=== PATIENT | male | born 1965 | race Caucasian/White ===

== ENCOUNTER 2024-12-27 06:05 | Emergency (ER) | payer OTHER, SELFPAY ==
[2024-12-27 06:08] VITALS: BP 221/102; PULSE 66; RESP 16; TEMP 36.5; O2SAT 97; BMI 35.9
[2024-12-27 06:16] VITALS: BP 221/120; PULSE 63; RESP 18; O2SAT 94
--- NOTE | 2024-12-27 06:36 | RAD_ITS ---
PROCEDURE: CHEST PA AND LATERAL REASON FOR EXAM: Hypertension TECHNIQUE: PA and lateral.. COMPARISON: None. FINDINGS: Lungs are clear of pneumonia and congestion. No pleural effusions, thickening, or pneumothorax. Upper limits of normal heart size. Great vessels unremarkable. No hilar masses. Bones and soft tissues are unremarkable. RAD/Chest PA and Lateral IMPRESSION: No active cardiopulmonary disease. Reading Location: [facility]
--- NOTE | 2024-12-27 06:36 | EKG12_ITS ---
Test Reason : HTN Blood Pressure : */* mmHG Vent. Rate : 55 BPM Atrial Rate : 55 BPM P-R Int : 142 ms QRS Dur : 92 ms QT Int : 444 ms P-R-T Axes : 42 -8 143 degrees QTcB Int : 424 ms Sinus bradycardia Biatrial enlargement Left ventricular hypertrophy with repolarization abnormality ( R in aVL , Boss product ) Abnormal ECG Confirmed by KHLOE BEDOLLA, HARRIET ([id number]), newspaper copy editor MIGUEL ANGEL FRANKLIN ([id number]) on 12/29/2024 6:58:48 AM Referred By: Confirmed By: HARRIET LEDBETTER MD
[2024-12-27 06:50] LABS: Absolute Lymphocyte Count 1.46 X10^3/uL (0.83-4.51); Absolute Neutrophil Count 3.7 X10^3/uL (2.0-7.7); Basophil# 0.05 X10^3/uL; Basophil% 0.8 % (0-1); Eosinophils% 4.9 % (0-5); Hematocrit 47.1 % (40-54); Hemoglobin 15.9 g/dL (13.0-16.5); Lymphocyte # 1.46 X10^3/ul (0.83-4.51); Mean Corp Hgb Conc 33.8 g/dL (32-36); Mean Corpuscular Hgb 29.7 pg (27.0-32.0); Mean Corpuscular Volume 87.9 fL (80-94); Mean Platelet Vol. 12.2 fl (6.2-12.0); Monocyte# 0.55 X10^3/uL; NRBC Flagged by Analyzer 0 % (0-5); Platelet Count 193 K/mm3 (150-450); RBC Distribution Width CV 12.9 % (11.6-14.6); RBC Distribution Width SD 41.3 fl (35.1-43.9); Red Blood Count 5.36 M/mm3 (4.6-6.2); White Blood Count 6.1 K/mm3 (4.4-11.0)
[2024-12-27] MEDS: hydrALAZINE 20 MG/ML Vial IV (06:56)
[2024-12-27] MEDS: cloNIDine HCl 0.1 MG Tablet PO (06:56)
[2024-12-27 07:03] VITALS: BP 194/115
[2024-12-27 07:07] LABS: Anion Gap 7 (5-15); BUN 14 mg/dL (7-18); BUN/Creat Ratio 14.2 RATIO (10-20); Calcium,Total 9.3 mg/dL (8.5-10.1); Chloride 103 mmol/L (98-107); Creatinine, Serum 0.98 mg/dL (0.70-1.30); EST Glomerular Filtration Rate 83 mL/min (>60); Est Glom Filt Rate - Afr Amer 101 mL/min (>60); Estimated Creatinine Clearance 101.89 ml/min; Glucose 120 mg/dL (74-106); Potassium 3.5 mmol/L (3.5-5.1); Sodium Level 140 mmol/L (136-145)
--- NOTE | 2024-12-27 07:12 | EX.ED.DYSGE1 ---
HPI History of Present Illness Chief Complaint: Hypertension Informant: patient and spouse/S.O. Narrative Narrative: Patient 59-year-old male with remote history of hypertension. He states that he was initially on a water pill to control his blood pressure but after moving to this area [place] did not obtain a PCP and once the medication ran out he did not seek out a new PCP to refill it. He states he has been feeling normal without headache change in vision chest pain or shortness of breath. He states that his was recently seen in the hospital for hypertension and this evening they were checking her pressure and he decided to check his and it was grossly elevated and secondary to this comes in for evaluation. He denies any excessive stimulant use or illicit drug use as potential exogenous cause. He states he does not have headache chest pain shortness of breath change in vision but secondary to the elevated reading comes in for evaluation. [facility] Medical History (Updated 12/27/24 @ 07:[address] William Mike, DO) Kidney stone Hypertension Home Medications ?Medication ?Instructions ?Recorded ?Last Taken ?Type hydrochlorothiazide 25 mg tablet 25 mg PO DAILY 30 days #30 tabs 12/27/24 Unknown Rx lansoprazole 15 mg capsule,delayed 15 mg PO DAILY 12/27/24 Unknown History release (Acid Corduroy Cutter Operator (lansoprazole)) lisinopril 20 mg tablet 20 mg PO DAILY 30 days #30 tabs 12/27/24 Unknown Rx vitamin D3 25 mcg (1,000 unit)-vit 2 tab PO DAILY 12/27/24 Unknown History K2 90 mcg disintegrating tablet (D3 Plus K2 Dots) Allergy/AdvReac Type Severity Reaction Status Date / Time apple AdvReac Mild Diarrhea Verified 12/27/24 06:07 Social History Smoking Status: Never smoker [facility] ED Constitutional Constitutional ED: Denies chills or fever(s) Eyes Eyes: Denies blurry vision, change in vision or diplopia ENT ENT ED: Denies sore throat Cardiovascular Cardiovascular: Denies chest pain, palpitations or racing heartbeat Respiratory/Chest Respiratory/Chest: Denies cough or dyspnea Gastrointestinal Gastrointestinal: Denies abdominal pain, diarrhea, nausea or vomiting Genitourinary Genitourinary ED: Denies dysuria Musculoskeletal Musculoskeletal: Denies back pain Integumentary Denies rash Neurologic Neurologic: Denies headache(s), paresthesias or weakness Hematologic/Lymphatic Hematologic/Lymphatic: Denies easy bleeding or easy bruising EXAM Physical Exam Const Vital Signs: 12/27/24 06:08 12/27/24 06:16 12/27/24 07:03 Temperature 97.7 F L Temperature Source Oral Pulse Rate 66 63 Respiratory Rate 16 18 Blood Pressure 221/102 H 221/120 H 194/115 H Blood Pressure Mean 141 153 141 Pulse Ox 97 94 Oxygen Delivery Method Room Air Room Air 12/27/24 07:27 Temperature Temperature Source Pulse Rate Respiratory Rate Blood Pressure 176/92 H Blood Pressure Mean 120 Pulse Ox Oxygen Delivery Method Positive well nourished and well developed General Appearance ED: well developed; Negative for pallor HEENT HEENT Narrative: Normocephalic atraumatic Eyes PERRL and EOMs intact bilaterally General Eye ED: Negative for scleral icterus Neck supple Resp normal respiratory effort and clear to auscultation bilaterally Cardio regular rate and regular rhythm Rate: other Other Details: Regular rate and rhythm without murmurs rubs or gallop Radial and carotid pulses are equal and symmetric GI normal to inspection, nondistended, normoactive bowel sounds, non-tender, non-distended and no masses GI Narrative: No pulsatile mass Auscultation: normoactive bowel sounds Palpation: soft Extremity normal to inspection Neuro oriented x3, CN's II-XII intact bilaterally and no sensory deficits noted Neuro Narrative: GCS of 15 Cranial nerves II through XII are grossly intact without focal neurologic deficit No pronator drift no dysmetria no truncal ataxia NIH stroke scale score of 0 Sensorium / Orientation: alert Motor Exam: strength 5/5 throughout Psych mental status grossly normal Skin no rashes or lesions noted and no wounds General Skin Exam: Negative for jaundice or pallor MDM MDM MDM Narrative Medical decision making narrative: Patient arrived to the ER hypertensive but otherwise asymptomatic. Without report of headache or altered mental status my concern for a spontaneous subarachnoid or subdural hemorrhage is low. An EKG was obtained to check for signs of acute coronary syndrome/ischemia which was normal. Basic blood work was obtained to check for acute kidney injury. He was given medication in the ER and his heart blood pressure reduced between 15 and 25% which is the goal reduction in the ER. His neurologic exam remained normal. Therefore this time the patient does not have hypertensive encephalopathy he does not have acute coronary syndrome he does not have acute kidney injury and overall there are no signs of endorgan damage and he has had a proper reduction of his blood pressure. Therefore there is no need for admission or further workup and he can be discharged home with symptomatic care History & Record Review Discussion w/independent historian: Patient and Significant other Lab Data Attestation: I reviewed the patient's lab results. Labs: Laboratory Results - last 24 hr 12/27/24 06:12 WBC 6.1 RBC 5.36 Hgb 15.9 Hct 47.1 MCV 87.9 MCH 29.7 MCHC 33.8 RDW Std Deviation 41.3 RDW Coeff of Chad 12.9 Plt Count 193 MPV 12.2 H Immature Gran % (Auto) 0.300 Neut % (Auto) 61.0 Lymph % (Auto) 24.0 Wheeler % (Auto) 9.0 Eos % (Auto) 4.9 Baso % (Auto) 0.8 Absolute Neuts (auto) 3.7 Absolute Lymphs (auto) 1.46 Nucleated RBC % 0 Sodium 140 Potassium 3.5 Chloride 103 Carbon Dioxide 30.0 Anion Gap 7 BUN 14 Creatinine 0.98 Estim Creat Clear Calc 101.89 Est GFR (MDRD) Af Amer 101 Est GFR (MDRD) Non-Af 83 BUN/Creatinine Ratio 14.2 Glucose 120 H Calcium 9.3 Radiography Diagnostic Testing: Clinical Impression(s) from Imaging Studies Chest X-Ray 12/27/24 06:36 IMPRESSION: No active cardiopulmonary disease. Reading Location: [facility] Chest x-ray as interpreted by the emergency medicine physician reveals no acute infiltrate pneumothorax pleural effusion or widening of the mediastinum Discharge Plan Triage Chief Complaint: Hypertension ED Provider: William Mike Dx/Rx/DC Orders Clinical Impression: Hypertension Instructions: Controlling High Blood Pressure, ED Hypertension New Begin Treatment Prescriptions: New lisinopril 20 mg tablet 20 mg PO DAILY 30 Days Qty: 30 1RF hydrochlorothiazide 25 mg tablet 25 mg PO DAILY 30 Days Qty: 30 1RF No Action D3 Plus K2 Dots 25 mcg (1,000 unit)-90 mcg tablet,disintegrating 2 tab PO DAILY lansoprazole [Acid Corduroy Cutter Operator (lansoprazole)] 15 mg capsule,delayed release(DR/EC) 15 mg PO DAILY Primary Care Provider: Care Physician,No Primary Referrals: Yuko Hightower MD [Med Staff - Roll Cutting Operator] - 1-2 Weeks (Hypertension) Care Physician,No Primary [Primary Care Provider] - Activity Restrictions/Additional Instructions: Please take the prescribed medication from the ER to help control your blood pressure and follow-up with your family doctor to discuss continuing or adjusting medication. Return to the ER should you have any further concerns or worsening of symptoms Print Language: Mongolian Disposition Disposition: Home, Self Care Discharge Date/Time: 12/27/24 07:56
[2024-12-27 07:27] VITALS: BP 176/92
[2024-12-27 07:53] VITALS: BP 168/78; PULSE 64; RESP 18; TEMP 37.1; O2SAT 99
== END 2024-12-27 07:56 | disposition home or self-care (01) ==
PROVIDERS: Emergency Provider Emergency Medicine; Visit Provider Emergency Medicine
DX: I10 Essential (primary) hypertension (principal)
CPT/HCPCS: 71046; 80048; 85025; 93005; 96374; 99283